=== PATIENT | female | born 1985 | race Caucasian/White ===

== ENCOUNTER 2016-12-14 10:36 | Emergency (ER) | payer BC ==
[~2016-12-14] VITALS: Ht 170.2 cm; Wt 72.6 kg
[2016-12-14 10:36] VITALS: BP 136/88
[2016-12-14] MEDS ORDERED: FLUORESCEIN SODIUM OPHTH 1 EA STRIP ONE (11:00)
[2016-12-14] MEDS ORDERED: TETRACAINE HCL/PF 0.5% UD 2 ML BOTTLE ONE (11:00)
[2016-12-14] MEDS ORDERED: LORA10TA68 PO (11:10)
== END 2016-12-14 11:28 | disposition home or self-care (01) ==
LOC: ER 10:44
DX: H57.8 Other specified disorders of eye and adnexa (principal)
CPT/HCPCS: A4606; Z7610